=== PATIENT | female | born 1970 | race Caucasian/White ===

== ENCOUNTER 2016-10-14 08:14 | Day surgery (SDC) | payer OTHER ==
[~2016-10-14] VITALS: Ht 167.6 cm; Wt 115.0 kg
[~2016-10-14 08:14] MED LIST: 0.9% Sodium Chloride 1,000 ML IV SCH; BACL20TA PO; BUSP15TA3 PO; KLO1T PO; LEVO200T24 PO; NORE-49 PO; OMEP20CA11 PO; ONDA4TAB6 PO; OXYC-466 PO; POLY17PO6 PO; ROPI2TAB2 PO; Sodium Chloride LOK Flush 10 mL Syringe IV PRN; TRAZ-118 PO; TROS60CA4 PO; fentaNYL-PF 50 mCg/mL 2 mL Inj IVPUSH PRN
[2016-10-14 08:40] VITALS: BP 127/67; PULSE 66; RESP 16; O2SAT 96
--- NOTE | 2016-10-14 09:32 | PCM.ENDCOL ---
Colonoscopy Date of Service: Oct 14, 2016 Physician Virgil Wolfe MD Pre Procedure Diagnosis: Abdominal pain and constipation Post Procedure Dx & Findings: Hemorrhoids Procedure Colonoscopy PROCEDURE IN DETAIL: Prep adequate Withdrawal time 22 minutes After unremarkable rectal examination the Olympus video colonoscope was inserted patient's anal canal and was advanced to cecum. Landmarks were identified including the ileocecal valve and appendiceal orifice. Scope was withdrawn systematically. Visualized colonic mucosa showed healthy shiny mucosa with normal healthy-appearing vasculature. I attempted to go into the terminal ileum on unable to due to looping. In the rectum retroflexion was done which showed hemorrhoids. Anal canal was inspected carefully on the way out and hemorrhoids noted. Impression Normal colon Hemorrhoids Constipation resolved Recommendation Repeat colonoscopy at 52 years old Follow up in GI clinic for abdominal pain despite resolution of constipation. Presedation Assessment Risks and Benefits Informed consent was obtained from the patient after all risks and benefits including but not limited to drug reaction, infection, pain, bleeding, perforation, as well as alternatives were discussed. Patient monitoring Continuous pulse oximetry, cardiac monitoring, blood pressure monitoring, IV access, and oxygen at 2L per nasal cannula. Periprocedural Fentanyl: Other Midazolam: Other Complications There were no periprocedural complications identified. Post Procedure Plan Post Procedure Recommendations 1. Restrict activities today. 2. Resume normal activities in the morning. 3. Resume medications. 4. Patient informed of normal post procedure side effects as bloating, drowsiness, blood streaking in the stool. 5. average risk CRCS. If colon polyps come back as: -Hyperplastic- can repeat colonoscopy in 10 years -Tubular adenoma- repeat colonoscopy in 5 years -Tubulovillous/villous adenoma- repeat colonoscopy in 3 years -If any dysplasia- return to clinic as soon as possible 6. Please don't hesitate to call me with any questions. Virgil Wolfe MD Oct 14, 2016 09:32
[2016-10-14 09:36] VITALS: BP 104/61; PULSE 64; RESP 14; O2SAT 95
[2016-10-14 09:46] VITALS: BP 98/47; PULSE 70; RESP 14; O2SAT 97
[2016-10-14 09:50] VITALS: BP 118/55; PULSE 70; RESP 18; O2SAT 97
== END 2016-10-14 23:59 | disposition home or self-care (01) ==
LOC: END 08:14
PROVIDERS: ATTEND Internal Medicine
DX: K64.9 Unspecified hemorrhoids (principal); K59.01 Slow transit constipation; E03.9 Hypothyroidism, unspecified; F32.9 Major depressive disorder, single episode, unspecified; M79.7 Fibromyalgia; E66.9 Obesity, unspecified; Z68.41 Body mass index [BMI] 40.0-44.9, adult; Z79.891 Long term (current) use of opiate analgesic
CPT/HCPCS: 45378; 99153; G0500; J2250; J3010; J7030